=== PATIENT | male | born 1945 | race Caucasian/White ===

== ENCOUNTER 2021-02-17 23:54 | Inpatient (IN) | payer BC, MEDICARE ==
[~2021-02-17] VITALS: Ht 177.8 cm; Wt 79.5 kg
[~2021-02-17 23:54] MED LIST: AMLO1TAB39 PO; ASPI-1265 PO; CALC-793 PO; CLIN150C8 PO; ROSU40TA PO
[2021-02-18 00:15] LABS: BASOPHILS # (AUTO) 0.1 X10'3 (0-0.2); EOSINOPHILS # (AUTO) 0.2 X10'3 (0-0.9); EOSINOPHILS % (AUTO) 3.1 % (0-6); HEMOGLOBIN 14.8 g/dl (14.0-17.9); LYMPHOCYTES # (AUTO) 1.5 X10'3 (1.1-4.8); LYMPHOCYTES % (AUTO) 24.3 % (21-51); MEAN CORPUSCULAR HEMOGLOBIN 29.9 PG (27.0-31.0); MEAN CORPUSCULAR HGB CONC 34.4 g/dL (33.0-36.5); MEAN PLATELET VOLUME 7.3 FL (7.4-10.4); MONOCYTES # (AUTO) 0.6 X10'3 (0-0.9); MONOCYTES % (AUTO) 9.2 % (2-12); NEUTROPHILS # (AUTO) 3.9 X10'3 (1.8-7.7); NEUTROPHILS % (AUTO) 62.4 % (42-75); PLATELET COUNT 184 X10'3 (140-440); RED BLOOD COUNT 4.94 X10'6 (4.70-6.10); RED CELL DISTRIBUTION WIDTH 14.5 % (11.5-14.5); WHITE BLOOD COUNT 6.3 X10'3 (4.5-11.0)
[2021-02-18 00:34] LABS: ALANINE AMINOTRANSFERASE 29 U/L (12-78); ALBUMIN 4.2 G/DL (3.4-5.0); ALKALINE PHOSPHATASE 73 IU/L (46-116); ANION GAP 8 (8-16); ASPARTATE AMINO TRANSFERASE 31 U/L (10-37); BILIRUBIN,TOTAL 0.6 MG/DL (0.1-1.0); BLOOD UREA NITROGEN 24 MG/DL (7-18); BUN/CREATININE RATIO 13.3 (5.4-32.0); CALCIUM 9.7 MG/DL (8.5-10.1); CHLORIDE 106 MMOL/L (99-107); GLUCOSE 101 MG/DL (70-104); POTASSIUM 4.4 MMOL/L (3.5-5.1); SODIUM 141 MMOL/L (135-145); TOTAL PROTEIN 8.4 G/DL (6.4-8.2); eGFR 37 ML/MIN
[2021-02-18 01:28] LABS: D-DIMER 2.29 MG/L FEU (0-0.50)
[2021-02-18] MEDS ORDERED: iohexol 350MG/ML 100ml bottle IV ONE (02:57)
[2021-02-18] MEDS ORDERED: aspirin 325mg tablet PO ONE (03:35)
[2021-02-18] MEDS ORDERED: HYDROcodone/acetaminophen 10/325mg tab PO PRN (04:35)
[2021-02-18] MEDS ORDERED: nitroGLYCERIN 0.4mg SUBLingual tab SL PRN (04:35)
[2021-02-18] MEDS ORDERED: HYDROcodone/acetaminophen 5mg/325mg tablet PO PRN (04:35)
[2021-02-18] MEDS ORDERED: morphine 2 MG/ML inj. syringe IV PRN ×2 (04:35)
[2021-02-18] MEDS ORDERED: ondansetron/PF 4mg/2ml inj IV PRN (04:35)
[2021-02-18] MEDS ORDERED: magnesium hydroxide 30ml (MOM) UD suspension PO PRN (04:35)
[2021-02-18] MEDS ORDERED: aminophylline 250mg/10ml inj. IV PRN (04:35)
[2021-02-18] MEDS ORDERED: diphenhydrAMINE 50 mg/ml inj IV PRN (04:35)
[2021-02-18] MEDS ORDERED: mag hydrox/Alum hydrox/simeth 30ml oral suspension PO PRN (04:35)
[2021-02-18] MEDS ORDERED: diphenhydrAMINE 25mg capsule PO PRN (04:35)
[2021-02-18] MEDS ORDERED: acetaminophen 650mg rectal suppository RC PRN (04:35)
[2021-02-18] MEDS ORDERED: metoprolol tartrate 1mg/ml inj IV PRN (04:35)
[2021-02-18] MEDS ORDERED: regadenoson 0.4mg/5ml syringe IV PRN (04:35)
[2021-02-18] MEDS ORDERED: ondansetron 4mg rapidly disintigrating tab PO PRN (04:35)
[2021-02-18] MEDS ORDERED: bisacodyl 10mg suppository rectal RC PRN (04:35)
[2021-02-18] MEDS ORDERED: dextrose 5%-1/2 normal saline 1,000 ML IV SCH (04:35)
[2021-02-18] MEDS ORDERED: acetaminophen 325mg tablet PO PRN ×2 (04:35)
[2021-02-18] MEDS ORDERED: AMLO-507 PO (04:49)
[2021-02-18 04:57] LABS: MAGNESIUM 2.5 MG/DL (1.5-2.4); PHOSPHORUS 4.3 MG/DL (2.3-4.5)
[2021-02-18 04:58] LABS: PARTIAL THROMBOPLASTIN TIME 26 SECONDS (22-32)
--- NOTE | 2021-02-18 07:29 | NUR ---
notified dr giron that pt has stress test done 6 months ago and also carotid artery test 2 weeks ago and as per pt it was negative and pt sees dr truong ,and pt is concern why they are repeating the test and as per dr giron he will come down after reviewing the pt chart and till the time tell the pt to hang in there. notified the pt about the plan of care.
[2021-02-18] MEDS ORDERED: pantoprazole 40mg Tablet.DR PO SCH (07:30)
[2021-02-18] MEDS ORDERED: docusate sod 100mg capsule PO SCH (08:00)
[2021-02-18] MEDS ORDERED: heparin, porcine 5000 units/ml vial SQ SCH (08:00)
[2021-02-18] MEDS ORDERED: aspirin 81mg tab.chew PO SCH ×2 (08:00→08:30)
[2021-02-18] MEDS ORDERED: losartan 25mg tablet PO SCH (08:00)
[2021-02-18] MEDS ORDERED: amLODIPine 5mg tablet PO SCH (08:00)
[2021-02-18] MEDS ORDERED: losartan 50mg tablet PO SCH (08:00)
[2021-02-18] MEDS ORDERED: nitroGLYCERIN 0.1mg/hour patch TD SCH (08:00)
[2021-02-18] MEDS ORDERED: atorvastatin 20mg tablet PO SCH (08:00)
[2021-02-18 10:23] VITALS: BP 145/91
[2021-02-18] MEDS ORDERED: temazepam 15mg capsule PO PRN (21:00)
== END 2021-02-18 11:00 | disposition home or self-care (01) | DRG 311 ==
LOC: ER 23:54 → ED HOLD 02-18 04:34
PROVIDERS: ADMIT Family Medicine; ATTEND Internal Medicine
PROC: B32T1ZZ Computerized Tomography (CT Scan) of Left Pulmonary Artery using Low Osmolar Contrast (ICD-10-PCS; principal; 2021-02-18)
PROC: B3201ZZ Computerized Tomography (CT Scan) of Thoracic Aorta using Low Osmolar Contrast (ICD-10-PCS; 2021-02-18)
PROC: B32S1ZZ Computerized Tomography (CT Scan) of Right Pulmonary Artery using Low Osmolar Contrast (ICD-10-PCS; 2021-02-18)
DX: I24.9 Acute ischemic heart disease, unspecified (principal); K80.10 Calculus of gallbladder with chronic cholecystitis without obstruction; E78.00 Pure hypercholesterolemia, unspecified; E78.5 Hyperlipidemia, unspecified; M79.602 Pain in left arm; Z20.822 Contact with and (suspected) exposure to COVID-19; M54.2 Cervicalgia; I10 Essential (primary) hypertension; Z95.0 Presence of cardiac pacemaker; Z79.899 Other long term (current) drug therapy
CPT/HCPCS: 36415; 71045; 71275; 80053; 83036; 83735; 83880; 84100; 84484; 85025; 85379; 85610; 85730; 87635; 93005; 99285; C9803; G0378; Q9967

== ENCOUNTER 2021-07-14 10:06 | Emergency (ER) | payer BC, MEDICARE ==
[~2021-07-14] VITALS: Ht 175.3 cm; Wt 79.5 kg
[~2021-07-14 10:06] MED LIST changes: +AMLO-507 PO; -AMLO1TAB39 PO; -CALC-793 PO; -CLIN150C8 PO
[2021-07-14] MEDS ORDERED: normal saline 1000ML IV soln IV ONE (10:25)
[2021-07-14 10:55] LABS: BASOPHILS % (AUTO) 1.4 % (0-1); EOSINOPHILS # (AUTO) 0.2 X10'3 (0-0.9); EOSINOPHILS % (AUTO) 5.3 % (0-6); HEMATOCRIT 41.6 % (42.0-52.0); HEMOGLOBIN 14.2 g/dl (14.0-17.9); LYMPHOCYTES # (AUTO) 0.7 X10'3 (1.1-4.8); LYMPHOCYTES % (AUTO) 19.7 % (21-51); MEAN CORPUSCULAR HEMOGLOBIN 29.2 PG (27.0-31.0); MEAN CORPUSCULAR VOLUME 85.8 FL (78-98); MEAN PLATELET VOLUME 7.3 FL (7.4-10.4); MONOCYTES # (AUTO) 0.3 X10'3 (0-0.9); MONOCYTES % (AUTO) 10.4 % (2-12); NEUTROPHILS # (AUTO) 2.1 X10'3 (1.8-7.7); NEUTROPHILS % (AUTO) 63.2 % (42-75); PLATELET COUNT 151 X10'3 (140-440); RED BLOOD COUNT 4.85 X10'6 (4.70-6.10); RED CELL DISTRIBUTION WIDTH 14.9 % (11.5-14.5); WHITE BLOOD COUNT 3.4 X10'3 (4.5-11.0)
[2021-07-14 11:09] LABS: ALANINE AMINOTRANSFERASE 26 U/L (12-78); ALBUMIN 4.2 G/DL (3.4-5.0); ALBUMIN/GLOBULIN RATIO 1.1 (1.1-1.5); ALKALINE PHOSPHATASE 59 IU/L (46-116); ANION GAP 10 (8-16); ASPARTATE AMINO TRANSFERASE 28 U/L (10-37); BILIRUBIN,TOTAL 0.5 MG/DL (0.1-1.0); BLOOD UREA NITROGEN 19 MG/DL (7-18); BUN/CREATININE RATIO 12.7 (5.4-32.0); CALCIUM 9.7 MG/DL (8.5-10.1); CHLORIDE 102 MMOL/L (99-107); GLUCOSE 96 MG/DL (70-104); POTASSIUM 5.1 MMOL/L (3.5-5.1); SODIUM 137 MMOL/L (135-145); TOTAL CARBON DIOXIDE 25.4 MMOL/L (24-32); TOTAL PROTEIN 8.2 G/DL (6.4-8.2); eGFR 46 ML/MIN
[2021-07-14 12:16] LABS: CLARITY,URINE CLEAR (Clear); GLUCOSE, URINE NEGATIVE (Neg); KETONES,URINE NEGATIVE (Neg); LEUKOCYTE ESTERASE ,URINE NEGATIVE (Neg); NITRITES, URINE NEGATIVE (Neg); OCCULT BLOOD,URINE NEGATIVE (Neg); PROTEIN,URINE NEGATIVE (Neg); UROBILINOGEN,URINE 0.2 E.U/dL (0.2-1.0)
[2021-07-14 12:19] LABS: COLOR,URINE STRAW (Yellow); UA COLLECTION TYPE VOIDED
[2021-07-14] MEDS ORDERED: polyethylene glycol 3350 17gm powd pack PO STA (13:00)
[2021-07-14] MEDS ORDERED: magnesium citrate 296ml oral solution PO ONE (13:00)
[2021-07-14] MEDS ORDERED: bisacodyl 10mg suppository rectal RC STA (13:00)
[2021-07-14] MEDS ORDERED: NALO25TA4 PO (13:16)
[2021-07-14 13:33] VITALS: BP 169/80
== END 2021-07-14 13:35 | disposition home or self-care (01) ==
LOC: ER 10:06
DX: K59.00 Constipation, unspecified (principal); R10.84 Generalized abdominal pain; R11.0 Nausea; E78.00 Pure hypercholesterolemia, unspecified; Z95.0 Presence of cardiac pacemaker; Z79.82 Long term (current) use of aspirin; Z79.899 Other long term (current) drug therapy
CPT/HCPCS: 36415; 71045; 74176; 80053; 81003; 83605; 84145; 85025; 87040; 93005; 96360; 96361; 99285; J7030

== ENCOUNTER 2021-07-24 09:11 | Inpatient (IN) | payer BC, MEDICARE ==
[~2021-07-24] VITALS: Ht 176.5 cm; Wt 78.2 kg
[~2021-07-24 09:11] MED LIST changes: +NALO25TA4 PO
--- NOTE | 2021-07-24 12:11 | NUR ---
requested milk and molasses enema ordered by Dr. Raya. Called dietary. Dietary stated that they had no molasses. MD notified.
--- NOTE | 2021-07-24 13:40 | NUR ---
Given an enema of 350ml of molasses and 350ml of milk.
--- NOTE | 2021-07-24 14:00 | NUR ---
Pt held enema mixture for 19min. Passing fluid only at this time.
[2021-07-24 16:07] LABS: BASOPHILS # (AUTO) 0.1 X10'3 (0-0.2); BASOPHILS % (AUTO) 1.9 % (0-1); EOSINOPHILS # (AUTO) 0.1 X10'3 (0-0.9); EOSINOPHILS % (AUTO) 3.1 % (0-6); HEMATOCRIT 42.1 % (42.0-52.0); HEMOGLOBIN 14.2 g/dl (14.0-17.9); LYMPHOCYTES # (AUTO) 0.7 X10'3 (1.1-4.8); LYMPHOCYTES % (AUTO) 21.4 % (21-51); MEAN CORPUSCULAR HEMOGLOBIN 29.2 PG (27.0-31.0); MEAN CORPUSCULAR HGB CONC 33.8 g/dL (33.0-36.5); MEAN CORPUSCULAR VOLUME 86.5 FL (78-98); MEAN PLATELET VOLUME 7.7 FL (7.4-10.4); MONOCYTES # (AUTO) 0.3 X10'3 (0-0.9); MONOCYTES % (AUTO) 10.1 % (2-12); NEUTROPHILS # (AUTO) 2.1 X10'3 (1.8-7.7); NEUTROPHILS % (AUTO) 63.5 % (42-75); PLATELET COUNT 141 X10'3 (140-440); RED BLOOD COUNT 4.87 X10'6 (4.70-6.10); RED CELL DISTRIBUTION WIDTH 14.9 % (11.5-14.5); WHITE BLOOD COUNT 3.4 X10'3 (4.5-11.0)
[2021-07-24] MEDS: diatr meglu/diatrizoate 30ml oral sol.-(3 dose) bottle PO SCH ×3 (16:17→17:47)
[2021-07-24 16:29] LABS: ALANINE AMINOTRANSFERASE 28 U/L (12-78); ALBUMIN 4.5 G/DL (3.4-5.0); ALBUMIN/GLOBULIN RATIO 1.1 (1.1-1.5); ALKALINE PHOSPHATASE 65 IU/L (46-116); ANION GAP 11 (8-16); ASPARTATE AMINO TRANSFERASE 25 U/L (10-37); BILIRUBIN,TOTAL 0.6 MG/DL (0.1-1.0); BLOOD UREA NITROGEN 16 MG/DL (7-18); BUN/CREATININE RATIO 10.8 (5.4-32.0); CHLORIDE 104 MMOL/L (99-107); CREATININE 1.48 MG/DL (0.60-1.10); GLUCOSE 91 MG/DL (70-104); LIPASE 180 U/L (73-393); POTASSIUM 4.9 MMOL/L (3.5-5.1); SODIUM 138 MMOL/L (135-145); TOTAL CARBON DIOXIDE 23.1 MMOL/L (24-32); TOTAL PROTEIN 8.5 G/DL (6.4-8.2); eGFR 47 ML/MIN
[2021-07-24] MEDS ORDERED: LACT10SO3 PO (16:46)
[2021-07-24] MEDS ORDERED: FLUC200T PO (16:46)
[2021-07-24] MEDS ORDERED: PLEC3TAB2 PO (16:46)
[2021-07-24] MEDS ORDERED: CHOL100017 PO (16:47)
[2021-07-24] MEDS ORDERED: iohexol 300mg/ml 100ml inj. ONE (17:18)
[2021-07-24] MEDS ORDERED: mag hydrox/Alum hydrox/simeth 30ml oral suspension PO PRN (20:55)
[2021-07-24] MEDS ORDERED: HYDROcodone/acetaminophen 10/325mg tab PO PRN (20:55)
[2021-07-24] MEDS ORDERED: morphine 2 MG/ML inj. syringe IV PRN ×2 (20:55)
[2021-07-24] MEDS ORDERED: HYDROcodone/acetaminophen 5mg/325mg tablet PO PRN (20:55)
[2021-07-24] MEDS ORDERED: magnesium hydroxide 30ml (MOM) UD suspension PO PRN (20:55)
[2021-07-24] MEDS ORDERED: acetaminophen 325mg tablet PO PRN ×2 (20:55)
[2021-07-24] MEDS ORDERED: ondansetron/PF 4mg/2ml inj IV PRN (20:55)
[2021-07-24] MEDS ORDERED: diatrozoate meglu/diatrozoate sod (37% iodine) 120ML oral solution PO ONE (21:10)
[2021-07-24 21:45] VITALS: BP 152/68
--- NOTE | 2021-07-24 21:45 | NUR ---
PATIENT ADMITTED TO ROOM 360B FROM ER FOR REFRACTORY CONSTIPATION. PLACED COMFORTABLE IN BED. VITAL SIGNS TAKEN AND RECORDED.
[2021-07-24] MEDS: mineral oil 133ml enema RC SCH (22:27)
--- NOTE | 2021-07-24 22:29 | NUR ---
MINERAL ENEMA NOT GIVEN PER ER NURSE INSTRUCTIONS. PATIENT WITH ON GOING GASTROGRAFIN ENEMA IN A BALLOON AND LET IT STAY UNTIL HE PASS STOOLS.
[2021-07-24] MEDS: normal saline 1000ml 1,000 ML IV SCH (22:47)
[2021-07-25] VITALS: BP 148/76
[2021-07-25] MEDS: metoclopramide 5 mg/ml inj IV SCH ×4 (02:52→20:00)
[2021-07-25] MEDS: mineral oil 133ml enema RC SCH ×3 (02:54→20:00)
[2021-07-25 06:37] LABS: BASOPHILS % (AUTO) 1.3 % (0-1); EOSINOPHILS # (AUTO) 0.1 X10'3 (0-0.9); EOSINOPHILS % (AUTO) 3.3 % (0-6); HEMATOCRIT 40.6 % (42.0-52.0); HEMOGLOBIN 13.8 g/dl (14.0-17.9); LYMPHOCYTES # (AUTO) 0.6 X10'3 (1.1-4.8); LYMPHOCYTES % (AUTO) 18.3 % (21-51); MEAN CORPUSCULAR HEMOGLOBIN 29.3 PG (27.0-31.0); MEAN CORPUSCULAR HGB CONC 34.1 g/dL (33.0-36.5); MEAN CORPUSCULAR VOLUME 86.1 FL (78-98); MEAN PLATELET VOLUME 7.9 FL (7.4-10.4); MONOCYTES # (AUTO) 0.4 X10'3 (0-0.9); MONOCYTES % (AUTO) 10.9 % (2-12); NEUTROPHILS # (AUTO) 2.3 X10'3 (1.8-7.7); NEUTROPHILS % (AUTO) 66.2 % (42-75); PLATELET COUNT 130 X10'3 (140-440); RED BLOOD COUNT 4.71 X10'6 (4.70-6.10); WHITE BLOOD COUNT 3.5 X10'3 (4.5-11.0)
[2021-07-25 06:50] LABS: ANION GAP 11 (8-16); BLOOD UREA NITROGEN 16 MG/DL (7-18); BUN/CREATININE RATIO 10.7 (5.4-32.0); CALCIUM 9.5 MG/DL (8.5-10.1); CHLORIDE 103 MMOL/L (99-107); CREATININE 1.49 MG/DL (0.60-1.10); GLUCOSE 90 MG/DL (70-104); SODIUM 138 MMOL/L (135-145); eGFR 46 ML/MIN
--- NOTE | 2021-07-25 06:50 | NUR ---
Problems reprioritized. Patient report given, questions answered & plan of care reviewed with RILEY RAMSEY.
[2021-07-25] MEDS: normal saline 1000ml 1,000 ML IV SCH ×2 (06:55→17:44)
--- NOTE | 2021-07-25 07:03 | NUR ---
Patient in room [facility]. I have received report from Rosalee Turk RN and had the opportunity to ask questions and assume patient care.
[2021-07-25] MEDS: aspirin 81mg tab.chew PO SCH (07:52)
[2021-07-25] MEDS: cholecalciferol (vitamin D3) 1,000 unit (25mcg) tablet PO SCH (07:52)
[2021-07-25] MEDS: enoxaparin 40mg/0.4ml syringe SUBCUT SCH (07:53)
[2021-07-25] MEDS: docusate sod 100mg capsule PO SCH ×2 (07:53→20:00)
[2021-07-25 08:00] VITALS: BP 140/74
[2021-07-25] MEDS ORDERED: atorvastatin 20mg tablet PO SCH (08:00)
[2021-07-25] MEDS: TRULANCE 3 MG PO SCH (08:00)
[2021-07-25] MEDS ORDERED: losartan 50mg tablet PO SCH (08:00)
[2021-07-25] MEDS: amLODIPine 5mg tablet PO SCH (09:23)
[2021-07-25 11:30] VITALS: BP 123/62
--- NOTE | 2021-07-25 13:46 | NUR ---
PAGER ID: [phone] MESSAGE: Lakeisha [phone] re: Ata Mtz in 360B. Xray called and said Radiologist will not do therapeutic gastrografin enema
--- NOTE | 2021-07-25 14:25 | NUR ---
Malnutrition consult: Pt reports 2-13 lb wt loss with decreased appetite per malnutrition risk screen with RN. Pt admit for c/o constipation for roughly two weeks. During that time pt reports not eating much and consuming mostly liquids per H&P. Pt currently on a full liquid diet and documented with 100% PO intake. Current documented wt is not scaled though is stable with recent wt hx in EMR. Pt with no documented decrease in muscle strength or edema. Pt currently lacks a minimum of two criteria for malnutrition. Recommend advancing to regular diet as medically indicated. Will continue to follow and monitor need for nutrition intervention and further monitor qualifying criteria for malnutrition. Addendum: 07/25/21 at [address] Amended: Links added.
--- NOTE | 2021-07-25 16:48 | NUR ---
PAGER ID: [phone] MESSAGE: Lakeisha [phone] re: Ata Traylorener in 360B. Pt said he would like to go home if the treatment is just going to be enemas. He said he can do those at home. Really wanting to see GI specialist.
[2021-07-25] MEDS ORDERED: lactulose 20gm/30ml cup PO ONE (17:00)
[2021-07-25 18:00] VITALS: BP 126/62
--- NOTE | 2021-07-25 19:16 | NUR ---
Patient in room [facility]. I have received report from Lakeisha RAMSEY and had the opportunity to ask questions and assume patient care.
[2021-07-26] VITALS: BP 122/65
[2021-07-26] MEDS: metoclopramide 5 mg/ml inj IV SCH ×2 (01:59→09:52)
[2021-07-26] MEDS: normal saline 1000ml 1,000 ML IV SCH (04:55)
[2021-07-26 06:06] LABS: ALBUMIN 3.5 G/DL (3.4-5.0); ANION GAP 9 (8-16); BASOPHILS # (AUTO) 0.1 X10'3 (0-0.2); BLOOD UREA NITROGEN 13 MG/DL (7-18); BUN/CREATININE RATIO 9.1 (5.4-32.0); CALCIUM 9.5 MG/DL (8.5-10.1); CHLORIDE 107 MMOL/L (99-107); CREATININE 1.43 MG/DL (0.60-1.10); EOSINOPHILS # (AUTO) 0.2 X10'3 (0-0.9); EOSINOPHILS % (AUTO) 5.5 % (0-6); GLUCOSE 93 MG/DL (70-104); HEMATOCRIT 36.4 % (42.0-52.0); HEMOGLOBIN 12.3 g/dl (14.0-17.9); LYMPHOCYTES # (AUTO) 0.8 X10'3 (1.1-4.8); LYMPHOCYTES % (AUTO) 25.6 % (21-51); MEAN CORPUSCULAR HEMOGLOBIN 28.9 PG (27.0-31.0); MEAN CORPUSCULAR HGB CONC 33.9 g/dL (33.0-36.5); MEAN CORPUSCULAR VOLUME 85.2 FL (78-98); MEAN PLATELET VOLUME 8.3 FL (7.4-10.4); MONOCYTES # (AUTO) 0.4 X10'3 (0-0.9); MONOCYTES % (AUTO) 12.9 % (2-12); NEUTROPHILS # (AUTO) 1.6 X10'3 (1.8-7.7); PLATELET COUNT 111 X10'3 (140-440); POTASSIUM 4.9 MMOL/L (3.5-5.1); RED BLOOD COUNT 4.27 X10'6 (4.70-6.10); RED CELL DISTRIBUTION WIDTH 14.8 % (11.5-14.5); SODIUM 140 MMOL/L (135-145); TOTAL CARBON DIOXIDE 23.9 MMOL/L (24-32); eGFR 48 ML/MIN
[2021-07-26 06:27] LABS: PLATELET ESTIMATE DECREASED; TOTAL CELLS COUNTED 100
[2021-07-26 06:28] LABS: MICROCYTOSIS 1+
--- NOTE | 2021-07-26 06:33 | NUR ---
Problems reprioritized. Patient report given, questions answered & plan of care reviewed with Claire RAMSEY.
[2021-07-26] MEDS: TRULANCE 3 MG PO SCH (08:00)
[2021-07-26] MEDS: aspirin 81mg tab.chew PO SCH (09:48)
[2021-07-26 09:50] VITALS: BP_SYST 144
[2021-07-26] MEDS: amLODIPine 5mg tablet PO SCH (09:50)
[2021-07-26] MEDS: cholecalciferol (vitamin D3) 1,000 unit (25mcg) tablet PO SCH (09:51)
[2021-07-26] MEDS: docusate sod 100mg capsule PO SCH (09:51)
[2021-07-26] MEDS: enoxaparin 40mg/0.4ml syringe SUBCUT SCH (09:53)
[2021-07-26] MEDS ORDERED: PEG 3350/Na sulf,bicarb,Cl/KCl oral sol 4 liter bottle PO ONE (10:25)
[2021-07-26] MEDS ORDERED: METO-292 PO (12:15)
--- NOTE | 2021-07-26 13:33 | NUR ---
Patient discharged on paper, paper work completed and signed.
--- NOTE | 2021-07-26 14:07 | NUR ---
Patient discharged. [facility]. Education completed with verbal acknowledgement.
--- NOTE | 2021-07-26 14:46 | NUR ---
Student documentation: I have reviewed and agree with all interventions, assessments performed and documented by Karsten FONG Student Medication Administration: For this medication-pass time frame, all medication were reviewed, dispensed, administered and documented per hospital policy by Karsten FONG Addendum: 07/26/21 at 1459 by Claire Cook RN Student Medication Administration: For all medication-pass' in the time frame of 4603-0538, all medication were reviewed, dispensed, administered and documented per hospital policy by Karsten FONG
== END 2021-07-26 14:00 | disposition home or self-care (01) | DRG 444 ==
LOC: ER 09:12 → ED HOLD 20:56 → SUR 3N 21:41
PROVIDERS: ADMIT Internal Medicine; ATTEND Internal Medicine
PROC: BW211ZZ Computerized Tomography (CT Scan) of Abdomen and Pelvis using Low Osmolar Contrast (ICD-10-PCS; principal; 2021-07-24)
DX: K80.20 Calculus of gallbladder without cholecystitis without obstruction (principal); N17.0 Acute kidney failure with tubular necrosis; N18.30 Chronic kidney disease, stage 3 unspecified; E78.00 Pure hypercholesterolemia, unspecified; E78.5 Hyperlipidemia, unspecified; Z20.822 Contact with and (suspected) exposure to COVID-19; G89.29 Other chronic pain; I12.9 Hypertensive chronic kidney disease with stage 1 through stage 4 chronic kidney disease, or unspecified chronic kidney disease; K59.00 Constipation, unspecified; M54.2 Cervicalgia; R19.7 Diarrhea, unspecified; Z79.899 Other long term (current) drug therapy; Z79.82 Long term (current) use of aspirin
CPT/HCPCS: 36415; 74177; 80048; 80053; 83605; 83690; 83880; 85007; 85025; 87081; 87635; 99285; C9803; G0378; J1650; J2765; J7030; Q9963; Q9967